=== PATIENT | female | born 2000 | race Two or more races ===

== ENCOUNTER 2024-09-09 05:55 | Emergency (ER) | payer MEDICAID, SELFPAY ==
[2024-09-09 05:56] VITALS: BMI 34.0
[2024-09-09 06:31] VITALS: BP 116/78; PULSE 77; RESP 16; TEMP 37.1; O2SAT 100
--- NOTE | 2024-09-09 06:35 | XR_ITS ---
Examination: Complete OB ultrasound, less than 14 weeks, transabdominal Date and time of exam: September 09, 2024 at 0744 hours INDICATIONS: Patient fell yesterday followed by pelvic pain and vaginal bleeding Technique: Obstetrical ultrasound images less than 14 weeks performed via transabdominal imaging Findings: Uterus 8.4 cm endometrial stripe 2.4 cm No intrauterine gestation or uterine mass Right ovary 3.2 cm arterial flow 17 mm follicular cyst Left ovary 4.4 cm arterial flow increased vascularity IMPRESSION: No uterine mass or intrauterine gestation Increased vascularity to the left ovary, measuring 4.4 cm with arterial flow, clinical correlation advised
--- NOTE | 2024-09-09 06:35 | PD.EDABDPN ---
ED Abdominal Pain RME/HPI General Chief Complaint: Abdominal Pain Stated complaint: FELL IN SHOWER, 6 WEEKS Time seen by provider: 09/09/24 06:16 Arrival date/time: 09/09/24 05:55 23-year-old female with no known medical history presents to the emergency room with a chief complaint of bilateral pelvic pain. Patient is currently 6 weeks and states that after her fall in the shower she is having pain and tenderness. Patient denies any vaginal bleeding Source: patient Mode of arrival: ambulatory Limitations: no limitations Related Data Home Medications ?Medication ?Instructions ?Recorded ?Confirmed Vitamin * 1 tab PO QDAY #0 tabs 01/08/17 Previous Rx's ?Medication ?Instructions ?Recorded cephalexin 500 mg capsule 500 mg PO BID 7 days #14 caps 09/09/24 Allergies Allergy/AdvReac Type Severity Reaction Status Date / Time No Known Allergies Allergy Unknown Verified 01/23/17 06:37 Review of Systems Review of Systems Systems Reviewed: All systems reviewed, normal except as documented Constitutional Constitutional: Reports system reviewed and no additional complaints, except as documented, Denies fatigue, Denies fever(s), Denies headache(s) and Denies weakness Eyes Eyes: Reports system reviewed and no additional complaints, except as documented, Denies blurry vision and Denies change in vision ENT Ears, Nose, Mouth, and Throat: Reports system reviewed and no additional complaints, except as documented, Denies otalgia, Denies headache(s), Denies nasal congestion, Denies throat swelling and Denies vertigo Cardiovascular Cardiovascular: Reports system reviewed and no additional complaints, except as documented, Denies chest pain, Denies dyspnea and Denies dyspnea on exertion Respiratory Respiratory: Reports system reviewed and no additional complaints, except as documented, Denies chest congestion, Denies cough, Denies dyspnea, Denies dyspnea on exertion and Denies wheezing Gastrointestinal Gastrointestinal: Reports system reviewed and no additional complaints, except as documented, Reports abdominal pain, Reports cramping, Denies nausea and Denies vomiting Genitourinary Genitourinary: Reports system reviewed and no additional complaints, except as documented Musculoskeletal Musculoskeletal: Reports system reviewed and no additional complaints, except as documented and Denies back pain Integumentary/Breasts Skin/Breast: Reports system reviewed and no additional complaints, except as documented and Denies wounds Neurologic Neurologic: Reports system reviewed and no additional complaints, except as documented, Denies confusion, Denies headache(s), Denies lack of coordination, Denies vertigo and Denies weakness Psychiatric Psychiatric: Reports system reviewed and no additional complaints, except as documented, Denies anxiety, Denies confusion, Denies depression, Denies paranoia, Denies suicidal ideation and Denies tactile hallucinations Endocrine Endocrine: Reports system reviewed and no additional complaints, except as documented and Denies fatigue Hematologic/Lymphatic Hematologic/Lymphatic: Reports system reviewed and no additional complaints, except as documented and Denies lymphadenopathy Allergic/Immunologic Allergic/Immunologic: Reports system reviewed and no additional complaints, except as documented, Denies throat swelling, Denies urticaria and Denies wheezing Past Medical History Social History SMOKING STATUS: Never smoker ED Exam General Limitations: Present no limitations General appearance: Present alert and in no apparent distress Head Head exam: Present atraumatic Eye Eye exam: Present normal appearance, PERRL and EOMI ENT ENT exam: Present normal exam, normal oropharynx and mucous membranes moist Neck Neck exam: Present normal inspection, full ROM and trachea midline Chest Chest inspection: Present normal inspection and symmetric chest wall rise Respiratory Respiratory exam: Present normal lung sounds bilaterally Cardiovascular Cardiovascular exam: Present regular rate, normal rhythm and normal heart sounds Abdominal Exam Abdominal exam: Present soft and normal bowel sounds Abdominal tenderness: Present RLQ, LLQ, suprapubic and mild Extremities Exam Extremities exam: Present normal inspection and full ROM Back Exam Back exam: Present normal inspection and full ROM Neurological Exam Neurological exam: Present alert, oriented X3 and CN II-XII intact Psychiatric Psychiatric exam: Present normal affect and normal mood Skin Skin exam: Present warm, dry, intact and normal color Course Quality Measures none Orders Category Date Time Status US OB <= 14 weeks fetus Stat Exams 09/09/24 06:35 Completed ABO/RH Type Stat Lab 09/09/24 08:50 Completed Beta HCG,Quantitative Stat Lab 09/09/24 08:50 Completed CBC Stat Lab 09/09/24 08:50 Completed CMP [Comprehensive Metabolic Panel] Stat Lab 09/09/24 08:50 Completed UA [Urinalysis] Stat Lab 09/09/24 07:15 Completed Vital Signs Vital signs: Vital Signs Temperature 98.8 F 09/09/24 06:31 Pulse Rate 77 09/09/24 06:31 Respiratory Rate 16 09/09/24 06:31 Blood Pressure 116/78 09/09/24 06:31 Pulse Oximetry (%) 100 09/09/24 06:31 Oxygen Delivery Method Room Air 09/09/24 06:31 O2 saturation 100% within normal limits Abdominal Pain MDM MDM Narrative MDM Narrative:: 23-year-old female with no known medical history presents to the emergency room with a chief complaint of bilateral pelvic pain. Patient is currently 6 weeks and states that after her fall in the shower she is having pain and tenderness. Patient denies any vaginal bleeding Patient is hemodynamically stable and in no apparent distress Physical examination shows bilateral 3 out of 10 pelvic cramping. An ultrasound OB was completed and at this time does not see a uterine mass or intrauterine gestation. The patient hCG levels are 1008. Patient was educated to return to the emergency room in 3 days for repeat ultrasound and blood work or to follow-up with her [employer] [employer] [facility] as soon as possible. Patient was discharged and educated to follow-up with primary care provider in the next 24 to 48 hours and return to the emergency room for any evidence of worsening signs or symptoms Patient data External records reviewed:: [facility] previous records Clinical information provided by:: patient Social determinants that could affect healthcare access:: none Patient has the following chronic illnesses:: No chronic illness How is presenting disease/condition affected by chronic disease/condition?: no chronic disease Evaluation data The following diagnostics were reviewed and interpreted by me:: lab results and radiology exam(s) Lab and/or radiology exams considered but not ordered:: Labs and radiology exams considered and ordered Interpretation Summary: Ultrasound OB-Findings: Uterus 8.4 cm endometrial stripe 2.4 cm No intrauterine gestation or uterine mass Right ovary 3.2 cm arterial flow 17 mm follicular cyst Left ovary 4.4 cm arterial flow increased vascularity IMPRESSION: No uterine mass or intrauterine gestation Increased vascularity to the left ovary, measuring 4.4 cm with arterial flow, clinical correlation advised Medications / Prescriptions Medications or Prescriptions considered but not ordered:: No medication given Medication administrations:: No medication given Consultations Consultation(s) initiated? (list below): No Diagnosis Differential diagnosis abdominal pain: abdominal pain, constipation, gastroenteritis and other (Threatened /pelvic pain) Most likely diagnosis given after review of the tests above:: Pelvic pain affecting Admission Indicated Admission indicated?: not indicated Admission Request Was there a request for admission?: No Disposition Plan Disposition Plan: Discharge Discharge Attestation Discharge Attestation: The patient and all family members were given an opportunity to ask questions and understood the discharge instructions. Discharge instructions specifically effects, indications for sooner follow up or return to the emergency department, and the expected course of current diagnosis. Patient condition: Stable Discharge Plan Plan Patient Disposition: HOME (Self Care) Discharge Disposition comment: Stable Prescriptions/Referrals Prescriptions/Med Rec: New cephalexin 500 mg capsule 500 mg PO BID 7 Days Qty: 14 0RF No Action Vitamin * 1 EACH tablet 1 tab PO QDAY Qty: 0 Referrals: No Primary/Family,Physician [Primary Care Provider] - In 1 week Problem List Clinical Impression: Urinary tract infection, Pelvic pain affecting Patient/Caregiver Discharge Instructions Education Materials: ED Abdominal Pain, Early , ED CYSTITIS Female Adult Additional Instructions: Please follow-up with your primary care provider in the next 24 to 48 hours. A copy of your ultrasound results was given and explained all the findings to you. At this time your hCG levels are at 1008. Please follow-up with your [employer] [facility] in the next 24 to 48 hours for further management. If you are unable to see your [employer] [facility] please return to the emergency room in 3 days for repeat ultrasound and blood work. For any evidence of worsening signs or symptoms including vaginal bleeding or worsening pain please return to the emergency room immediately Print Language: Armenian Stand Alone Forms: Jaclyn Award Info., Work/School Release, Patient Portal Info Letter KIRAN/JERICHO Supervising Physician KIRAN/JERICHO Supervising Physician: Dr. Etienne
[2024-09-09 07:31] LABS: Collection Type, Urine Clean Catch
[2024-09-09 07:58] LABS: Bacteria,Urine 3+; Bilirubin,Urine Negative (Negative); Blood,Urine Negative (Negative); Color,Urine Yellow (Lt Yel-Yel); Glucose, Urine Negative (Negative); Ketones,Urine Negative (Negative); Leukocyte Esterase,Urine Positive (Negative); Nitrite,Urine Positive (Negative); Protein,Urine Trace (Neg - Trace); RBC,Urine 6 /hpf (0-3); Specific Gravity,Urine 1.026 (1.001-1.035); Squamous Epithelial Cell,Urine 34 /hpf (0-5); Urobilinogen,Urine Negative mg/dL (0.0-1.0); WBC,Urine 19 /hpf (0-5)
[2024-09-09 08:31] LABS: Clarity,Urine Hazy (Clear/Hazy)
[2024-09-09 09:13] LABS: Basophils % (Auto) 0 % (0-2.5); Eosinophils # (Auto) 0.1 Thou/mm3 (0.0-0.5); Eosinophils % (Auto) 2 % (0-10); Hematocrit 34.7 % (36.0-46.0); Hemoglobin 12.2 g/dL (12.0-16.0); Immature Granulocytes % (Auto) 0 % (0-0); Immature Granulocytes Auto 0.01 Thou/mm3 (0.00-0.00); Lymphocytes # (Auto) 1.9 Thou/mm3 (1.0-4.8); Lymphocytes % (Auto) 32 % (10-50); Mean Corpuscular HGB Conc 35.2 g/dl (31.0-37.0); Mean Corpuscular Hemoglobin 31.5 pg (25.0-35.0); Mean Corpuscular Volume 90 fL (80-100); Monocytes # (Auto) 0.5 Thou/mm3 (0.0-0.8); Monocytes % (Auto) 9 % (0-12); Neutrophils # (Auto) 3.3 Thou/mm3 (1.8-7.7); Neutrophils % (Auto) 56 % (37-80); Nucleated Red Blood Cell % 0 /100 WBC (0); Platelet Count 365 Thou/mm3 (140-440); RDW Standard Deviation 40.9 fL (36.4-46.3); Red Blood Count 3.87 Miln/mm3 (4.00-5.20); White Blood Count 5.9 Thou/mm3 (3.6-11.0)
[2024-09-09 09:46] LABS: Alanine Aminotransferase 23 U/L (10-49); Albumin, Serum 4.3 gm/dL (3.5-5.0); Albumin/Globulin Ratio 1.6 (1.2-2.2); Alkaline Phosphatase 68 U/L (46-116); Anion Gap 10 (7-16); Aspartate Amino Transferase 19 U/L (0-34); BUN/Creatinine Ratio 10 Ratio (12-20); Beta HCG,Quantitative 1008 mIU/mL (<5.0); Bilirubin,Total 0.4 mg/dL (0.3-1.2); Blood Urea Nitrogen 6 mg/dL (9-23); Calcium 8.7 mg/dL (8.3-10.6); Calcium (Corrected) 8.7 mg/dL (8.5-10.1); Carbon Dioxide 24.5 mMol/L (20.0-31.0); Chloride 107 mMol/L (98-107); Creatinine (Component) 0.6 mg/dL (0.6-1.3); Estimated Creatinine Clearance 135.5 mL/min (>60); Globulin 2.7 gm/dL (2.3-3.5); Glucose 96 mg/dL (74-106); Osmolality,Calculated 278 (275-295); Potassium 3.7 mMol/L (3.4-5.1); Sodium 141 mMol/L (136-145); eGFR > 60 See Note
[2024-09-09 10:57] VITALS: BP 122/77; PULSE 77; RESP 16; O2SAT 99
== END 2024-09-09 10:58 | disposition home or self-care (01) ==
PROVIDERS: Nurse Practitioner Family; Emergency Provider Family Medicine
DX: O23.41 Unspecified infection of urinary tract in pregnancy, first trimester (principal); N39.0 Urinary tract infection, site not specified; W18.2XXA Fall in (into) shower or empty bathtub, initial encounter; Z3A.01 Less than 8 weeks gestation of pregnancy
CPT/HCPCS: 36415; 76801; 80053; 81001; 84702; 85025; 86900; 86901; 99284